=== PATIENT | male | born 1985 | race Caucasian/White ===

== ENCOUNTER 2016-11-26 16:58 | Emergency (ER) | payer BC ==
[2016-11-26] MEDS ORDERED: 0.9 % SODIUM CHLORIDE 1,000 ML IV ONE ×4 (17:14→18:32)
[2016-11-26] MEDS ORDERED: INSULIN REGULAR, HUMAN 100 UNIT/ML 3ML VIAL ONE ×2 (17:14→18:27)
[2016-11-26] MEDS ORDERED: INSULIN LISPRO 100 UNIT/ML 3ML VIAL SQ ONE (17:39)
[2016-11-26] MEDS ORDERED: ONDANSETRON HCL/PF 4 MG/ 2ML VIAL ONE (17:40)
--- NOTE | 2016-11-26 17:40 | ED Physician Documentation ---
General Adult - HISTORIAN Historian: patient - HPI Stated Complaint: High Blood Sugar/Withdrawal from Fentanyl Chief Complaint: General Adult Onset: hours Timing: still present Further Comments: yes (Patient is a 31yo white male who has been abuse Fentanyl 100mg tabs taking 7-8 daily. Was hospitalized last for withdrawal symptoms. No problems with his diabetes at that time. He used again on Friday. Has not had any further since then. Has started to have withdrawal problems again and was being seen for admission to [facility] [place]. Patient is type 1 daibetic and is taking Lantus 24 untis q HS and Novolog 5 untis with a sliding scale. Has not eaten anything today and has not taken any insulin because of his withdrawal symptoms. Patient was referred tot he ED after he was found to be hyperglycemic. Patient has had problems with DKA in the past with the last episode being about 8 months ago.) - ROS CONST: sweating, other (ruuny nose, headache, body aches). denies: fever, chills EYES/ENT: denies: problems with vision GI/: vomiting (times two today). denies: diarrhea MS/SKIN/LYMPH: joint pain - PAST HX Past History: other (depression) Other History: diabetes Type 1 Surgeries/Procedures: none Allergies/Adverse Reactions: Allergies Allergy/AdvReac Type Severity Reaction Status Date / Time No Known Allergies Allergy Unverified 11/26/16 17:24 Home Medications: Ambulatory Orders Medication Instructions Recorded Insulin Glargine,Hum.rec.anlog 11/26/16 [Lantus Solostar] Insulin Lispro [Humalog] unit SQ ACHS 11/26/16 Omeprazole [Prilosec] 40 mg PO DAILY 11/26/16 Risperidone [Risperdal] 0.5 mg PO DAILY 11/26/16 Sertraline HCl [Sertraline HCl] 50 mg PO DAILY 11/26/16 - SOCIAL HX Smoking History: less than 1 pack/day Alcohol Use: none Drug Use: other (fentanyl tabs) - FAMILY HX Family History: No - VITAL SIGNS Vital Signs: Vital Signs Temp Pulse Resp BP Pulse Ox 99 H 32 H 145/94 99 11/26/16 16:58 11/26/16 16:58 11/26/16 16:58 11/26/16 16:58 - REVIEWED ASSESSMENTS Nursing Assessment Reviewed: Yes Vitals Reviewed: Yes Progress - Progress Progress: Blood sugar decreased to 395 Patient has had 2 liters of fluid, will give a third. Patient states that he is feeling better. ED Results Lab/Radiology - Orders Orders: ED Orders Category Date Time Status Place Saline Lock/IV Now Care 11/26/16 17:[address] Saline Lock/IV Now Care 11/26/16 17:36 Ordered ARTERIAL BLOOD GAS Stat Lab 11/26/16 Uncollected CBC/PLATELET/DIFF Routine Lab 11/26/16 Ordered CMP [CMP] Routine Lab 11/26/16 Ordered URINALYSIS Routine Lab 11/26/16 Uncollected 0.9 % Sodium Chloride [Normal Saline] 1,000 ml Med 11/26/16 17:14 Discontinued IV .STK-MED Insulin Lispro 3Ml [Humalog] Med 11/26/16 17:39 Once 10 unit SQ NOW ONE Insulin Regular, Human [Humulin R] Med 11/26/16 17:14 Discontinued 300 unit .ROUTE .STK-MED ONE NORMAL SALINE @ 1000 MLS/HR ( 1000ml) (BOLUS) Med 11/26/16 18:00 Ordered 0.9 % Sodium Chloride [Normal Saline] 1,000 ml IV .Q1H NORMAL SALINE @ 1000 MLS/HR ( 1000ml) (BOLUS) Med 11/26/16 18:00 Ordered 0.9 % Sodium Chloride [Normal Saline] 1,000 ml IV .Q1H General Adult Physical Exam - PHYSICAL EXAM GENERAL APPEARANCE: moderate distress EENT: dry mucous membranes, other (mild clear rhinorrhea). No: exudate, oral lesions NECK: normal inspection, supple. No: lymphadenopathy, stiff neck, Kernig's RESPIRATORY: no resp distress, chest non-tender, breath sounds normal. No: wheezes, rales, rhonchi CVS: reg rate & rhythm, heart sounds normal ABDOMEN: soft, no organomegaly, no distension, non-tender, decreased BS BACK: normal inspection, no CVA tenderness SKIN: warm/dry, normal color EXTREMITIES: non-tender, normal range of motion NEURO: oriented X3, CN's nml as tested, motor nml, sensation nml, mood/affect nml, cognition normal Discharge Clincal Impression: Opiate abuse, continuous Home Medications: Ambulatory Orders Insulin Glargine,Hum.rec.anlog [Lantus Solostar] 11/26/16 Insulin Lispro [Humalog] unit SQ ACHS 11/26/16 Omeprazole [Prilosec] 40 mg PO DAILY 11/26/16 Risperidone [Risperdal] 0.5 mg PO DAILY 11/26/16 Sertraline HCl [Sertraline HCl] 50 mg PO DAILY 11/26/16 Condition: Good Disposition: XFER SHT-TRM HOSP Decision to Admit: NO Date of Decison to Admit: 11/26/16 Decision Time: 18:45
[2016-11-26 17:46] LABS: MEAN CORPUSCULAR HEMOGLOBIN 30.6 pg (28.0-34.0)
[2016-11-26 17:53] LABS: APPEARANCE,URINE Clear (CLEAR); COLOR,URINE Yellow (YELLOW); OCCULT BLOOD,URINE Negative (NEGATIVE); UROBILINOGEN URINE 0.2 Eu (0.2-1.0)
[2016-11-26 17:56] LABS: eGFR (African) > 60; eGFR (Non-African) > 60
[2016-11-26 17:57] LABS: MONOCYTES % 3 % (0-11); SEGMENTED NEUTROPHILS % 92 % (39-79)
[2016-11-26] MEDS ORDERED: ONDANSETRON HCL/PF 4 MG/ 2ML VIAL IVP ONE (18:00)
[2016-11-26] MEDS ORDERED: 0.9 % SODIUM CHLORIDE 1,000 ML IV SCH ×2 (18:00)
[2016-11-26] MEDS ORDERED: INSULIN REGULAR, HUMAN 100 UNIT in 0.9 % SODIUM CHLORIDE 100 ML IV ONE ×2 (18:25)
[2016-11-26] MEDS ORDERED: 0.9 % SODIUM CHLORIDE 100 ML IV ONE (18:26)
[2016-11-26 19:08] VITALS: BP 143/99
[2016-11-27 05:54] LABS: ABG PH 7.16 (7.35-7.45); ABG PO2 128 mmhg (80-100)
[2016-11-27 05:55] LABS: ABG BASE EXCESS -22.9 (-2 - +2)
[2016-11-27 05:56] LABS: ABG OXYGEN SATURATION 98 % (93-100); ABG PCO2 < 18 mmhg (35-45)
== END 2016-11-26 19:07 | disposition short-term general hospital (02) ==
LOC: ED 16:58
DX: F11.20 Opioid dependence, uncomplicated (principal)
CPT/HCPCS: 36600; 80053; 81002; 82803; 85025; J1815; J2405; J7030; J7060; S1016